=== PATIENT | female | born 1950 | race Caucasian/White ===

== ENCOUNTER 2016-09-02 03:45 | Emergency (ER) | payer MEDICARE, OTHER ==
[~2016-09-02] VITALS: Ht 162.6 cm; Wt 67.3 kg
[~2016-09-02 03:45] MED LIST: ATOR20TA PO; BECL8.7A5 IH; CALC-190 PO; CHOL10008 PO; CYCL1DRO OP; CYCL5TAB PO; DOXA2TAB52 PO; DULO30CA PO; FLAX100010 PO; GABA-500 PO; LINA145C PO; LOSA100T29 PO; MAGN500T PO; METH2.5T PO; PRE625 PO; SODI354S PO; TRAZ-115 PO
[2016-09-02 03:50] VITALS: BP 165/81; PULSE 87; RESP 16; O2SAT 96
--- NOTE | 2016-09-02 04:01 | ED.REPORT ---
HPI-Allergic Reaction Date of Service Sep 02, 2016 ED Provider: Naveen Awad MD Pt is a 65 year old female with a history of HTN, Anxiety, migraines, and recent latent TB diagnosis who presents to the ED complaining of headaches. She c/o associated nausea, vomiting, photophobia, insomnia, and neck stiffness. She denies numbness, speech-related symptoms, and difficulty walking. Her reports that the pt is unstable on her feet sometimes. The pt states that she thinks that she is having an allergic reaction to the medication that she was prescribed to treat her latent TB. Pt took 3 doses of Imitrex prior to arrival without relief. Nursing Notes Stated Complaint: ALLERGIC REACTION TO MED Chief Complaint: Headache Nursing Notes Reviewed: Yes Allergies: Coded Allergies: hydroxychloroquine (Verified Allergy, Mild, hives, 09/28/15) sulfasalazine (Verified Adverse Reaction, Mild, gi upset, 09/28/15) Uncoded Allergies: No Known Allergies (Allergy, Severe, 08/07/04) Scheduled Atorvastatin (Lipitor) 20 Mg Tablet 20 MG PO DAILY Calcium Carb&Cit/Mag12/Vit D3 (Calcium 500 mg Tablet) 1 Each Tablet 1 EACH PO DAILY Cholecalciferol (Vitamin D3) (Vitamin D3) 1,000 Unit Tab.chew 2,000 UNIT PO DAILY Cyclosporine (Restasis) 1 Each Droperette 1 EACH OP q12h Doxazosin (Cardura) 2 Mg Tablet 2 MG PO HS Duloxetine (Cymbalta) 30 Mg Capsule.dr 90 MG PO DAILY Estrogens Conjugated (Premarin) 0.625 Mg Tablet 0.625 MG PO DAILY Flaxseed (Flaxseed Oil) 1,000 Mg Capsule 1,000 MG PO DAILY Gabapentin (Gabapentin) 100 Mg Capsule 100-300 MG PO DAILY Linaclotide (Linzess) 145 Mcg Capsule 145 MCG PO DAILY Losartan Potassium (Losartan Potassium) 100 Mg Tablet 100 MG PO DAILY Magnesium Oxide (Magnesium Oxide) 500 Mg Tablet 500-1,000 MG PO HS Methotrexate Sodium (Methotrexate) 2.5 Mg Tablet 3 TAB PO BID Trazodone (Trazodone) 50 Mg Tablet 50 MG PO HS Scheduled PRN Beclomethasone Dipropionate (Qvar) 8.7 Gm Aer.w.adap 2 PUFFS IH BID PRN PRN For Shortness of Breath Cyclobenzaprine (Cyclobenzaprine) 5 Mg Tablet 5 MG PO HS PRN PRN Spasm Miscellaneous Medications Sodium,Potassium,&Mag Sulfates (Suprep Bowel Prep Kit) 354 Ml Soln.recon 354 ML PO General Time Seen by MD: 04:00 Chief Complaint Other (Headache) Hx Obtained From: Patient Arrived By: Walk-in Onset Occurred: Onset unknown Symptom Duration: Since onset Location: : Head Quality: Painful Severity: Current: Moderate Severity: Maximum: Moderate Recent Healthcare: No recent doctor visit, No recent hospitalization Similar Sx Previous: No Past Medical History Past Medical History Anxiety Reports: Hypertension Reports: Depression Past Surgical History Knee Smoking History Former Smoker Social History Alcohol Use: "Social" Drug Use: Denies drug use Other Social History: Good social support Ambulatory Status Independent Review of Systems GI: Reports: Nausea, Vomiting Neurologic: Reports: Headache, Denies: Numbness, Problem walking, Slurred speech, Unable to speak Complete sys rev & neg: except as marked. Musculoskeletal: Reports: Neck pain (stiffness) Psychiatric: Reports: Insomnia Physical Exam Initial Vital Signs Vital Signs (First) Date Time Temp Pulse Resp B/P Pulse Ox O2 Delivery O2 Flow Rate FiO2 09/02/16 03:50 37.5 87 16 165/81 96 Room Air Initial VS: Reviewed, Vital signs abnormal Neck: Supple, Full range of motion Abdomen / GI: Soft, Non-tender Extremities: Vascular intact, Neuro intact Neurologic: Alert, Oriented, Nonfocal Psychiatric: Mood/affect normal, Behavior normal General/Constitutional: Awake, Alert, Cooperative Respiratory / Chest: Atraumatic, Breath sounds NL, Breath sounds = bilat Cardiovascular: Heart rate NL, Regular rhythm, Heart sounds NL Skin: Atraumatic, Warm, Dry, Intact Head / Eyes: Atraumatic, Normocephalic Photophobic and wearing dark glasses Neurologic: Oriented X3, Speech NL, No motor deficits, No sensory deficits, CN II - XII intact Interpretation & Diagnostics Lab Results Interpretation Result Diagram: 09/02/16 0505 09/02/16 0505 Test 09/02/16 05:05 White Blood Count 7.4th/mm3 (3.8-10.1) Red Blood Count 4.40mil/mm3 (3.90-5.20) Hemoglobin 13.1g/dL (12.0-15.6) Hematocrit 39.1% (35.0-46.0) Mean Corpuscular Volume 88.9fL (81-100) Mean Corpuscular Hemoglobin 29.8pg (27.0-35.0) Mean Corpuscular Hemoglobin Concent 33.5% (32.0-37.0) Red Cell Distribution Width 13.4% (12.3-15.4) Platelet Count 218bil/L (150-400) Neutrophils (%) (Auto) 84.4% (40-74) Lymphocytes (%) (Auto) 7.9% (14-46) Monocytes (%) (Auto) 6.7% (4-12) Eosinophils (%) (Auto) 0.4% (0-5) Basophils (%) (Auto) 0.3% (0-3) Sodium Level 131mEq/L (134-144) Potassium Level 3.7mEq/L (3.5-5.2) Chloride Level 96mEq/L (97-108) Carbon Dioxide Level 22mmol/L (18-29) Blood Urea Nitrogen 12mg/dL (8-27) Creatinine 0.51mg/dL (0.57-1.00) Estimat Glomerular Filtration Rate 173mL/min (>59) Glucose Level 137mg/dL (60-99) Calcium Level 8.7mg/dL (8.5-10.1) Magnesium Level 1.8mg/dL (1.6-2.6) Hold Valencia Top Tube Received (Received) Lab values outside NL range: no clinical significance. Re-Eval/Medical Decision Med Decision/Clinical Course 65-year-old female with a history of migraines presents with a different type of headache, not relieved by tryptophan. She wonders if it may related to her rifampin or Ambien. She has been on the rifampin for several weeks without headache. She only recently tried using Ambien and the headache started after that. CT scan is negative. Labs are normal. She got relief with nonnarcotic pain medication. She is now comfortable and will be discharged home. She will follow-up with her regular doctors. Source of Hx: Old records Re-Evaluation/Progress #1: Time of Eval: 04:39 Re-Evaluation/Progress Note: Pt rechecked. Informed pt of finding of potential medication side-effect causing headaches. All questions were answered. Re-Evaluation/Progress #2: Time of Eval: 05:46 Re-Evaluation/Progress Note: Pt rechecked. She denies improvement. Informed pt of plan for CT scan. Pt understands and agrees with plan. All questions addressed. Counseled Regarding: Diagnosis, Lab results Discharge & Departure Shift Change Sign-Out Patient Care Transferred: Yes Discussed Complaint(s): Yes Laboratory Evaluation: Lab evaluation discussed Imaging Studies: Ordered, not yet done Primary Impression: Headache Headache type: unspecified Headache chronicity pattern: acute headache Intractability: not intractable Qualified Code: R51 - Headache Disposition: Home Discharge Condition All VS Reviewed: Yes Condition: Stable Patient Instructions: Acute Headache (ED) Additional Instructions: The cause of headache is uncertain but very well could be related to the Ambien. Recommend that she not use Ambien. Rifampin is also known to cause headaches, but the timing does not seem right for that. Her CT scan and labs are normal. Follow-up with her regular doctors as planned. Return to the emergency room if she worsens significantly again. Referrals: Sumi Ching MD (PCP) Care Transferred to: Dr. Cadena Care Transferred at: 06:00 Brittany Attestation Portions of this note were transcribed by Lucia Milan. I, Dr. Awad personally performed the history, physical exam and medical decision-making; I reviewed and confirmed the accuracy of the information in the transcribed note. Signed by: Brittany Rosales, 09/02/16 and 05:30. copies to: Sumi Ching MD, Howard L MD Sep 02, 2016 04:01 Lucia Leonardo Sep 02, 2016 04:14
[2016-09-02] MEDS ORDERED: 0.9% Sodium Chloride 1,000 ML IV ONE (04:41)
[2016-09-02] MEDS ORDERED: Ondansetron 2 mg/mL 2 mL Inj IVPUSH ONE (04:45)
[2016-09-02] MEDS ORDERED: Ketorolac 15 mg/mL Inj IVPUSH ONE (04:45)
[2016-09-02] MEDS ORDERED: ProchlorPERazine 5 mg/mL 2 mL Inj IVPUSH ONE (04:45)
[2016-09-02 05:24] LABS: BASOPHILS % (AUTO) 0.3 % (0-3); EOSINOPHILS % (AUTO) 0.4 % (0-5); MONOCYTES % (AUTO) 6.7 % (4-12); Mean Corpuscular Hemoglobin 29.8 pg (27.0-35.0); Mean Corpuscular Volume 88.9 fL (81-100); NEUTROPHILS % (AUTO) 84.4 % (40-74); Platelet Count 218 bil/L (150-400)
[2016-09-02 05:47] LABS: Magnesium 1.8 mg/dL (1.6-2.6)
[2016-09-02] MEDS ORDERED: Acetaminophen IV 1,000 MG in IV Premix 1 EACH IV ONE (05:50)
[2016-09-02 06:19] VITALS: BP 144/88; PULSE 93; RESP 16; O2SAT 99
[2016-09-02] MEDS ORDERED: HYDR-656 PO (06:47)
--- NOTE | 2016-09-02 07:48 | DRSVH ---
PROCEDURE: CT BRAIN WITHOUT CONTRAST ([id number]) INDICATIONS: headache TECHNIQUE: Noncontrast 4.5 mm thick angled axial sections acquired from the foramen magnum to the vertex, with c oronal reformats. COMPARISON: None. FINDINGS: Image quality: Excellent. CSF spaces: Basal cisterns are patent. No extra-axial fluid collections. Ventricles are normal in size and shape. Brain: No midline shift. No intracranial masses or hemorrhage. Peace-white matter interface is norm al. Skull and face: Calvarium and visualized facial bones are intact, without suspicious lesions. Sinuses: Visualized sinuses and mastoids are clear. IMPRESSION:: Acute intracranial abnormality. No significant discrepancy with the shift superintendent caustic cresylate radiology preliminary report. Dictated by: Luz Walker M.D. on 09/02/2016 at 7:46 Approved by: Luz Walker M.D. on 09/02/2016 at 7:46
[2016-09-02 15:27] LABS: Bilirubin, Direct 0.3 mg/dL (0.0-0.3)
== END 2016-09-02 06:52 | disposition home or self-care (01) ==
LOC: SED 03:45
DX: R51 Headache (principal); I10 Essential (primary) hypertension; F41.9 Anxiety disorder, unspecified; F32.9 Major depressive disorder, single episode, unspecified; Z87.891 Personal history of nicotine dependence; Z88.8 Allergy status to other drugs, medicaments and biological substances; Z88.2 Allergy status to sulfonamides
CPT/HCPCS: 36415; 70450; 80048; 80076; 83735; 85025; 96361; 96374; 96375; 99285; J0131; J0780; J1200; J1885; J2405; J7030